=== PATIENT | male | born 1990 | race African-American/Black ===

== ENCOUNTER 2019-08-23 07:43 | Inpatient (IN) ==
[2019-08-23] MEDS ORDERED: HYDROmorphone 2 MG/1 ML VIAL IV STA (07:52)
[2019-08-23] MEDS ORDERED: LACTATED RINGERS 1,000 ML IV STA (07:52)
[2019-08-23] MEDS ORDERED: PROPOFOL 200 MG/20 ML VIAL IV ONE (08:23)
[2019-08-23 08:53] LABS: Basophils % 0.2 % (0.0-0.8); Hematocrit 35.9 VOL% (42.0-52.0); Hemoglobin 11.7 GM/DL (14.0-18.0); Immature Granulocytes % 0.8 %; Immature Granulocytes Absolute 0.15 #; Lymphocytes # 1.6 10*3/uL (1.4-4.0); Mean Corpuscular HGB Conc 32.6 GM/DL (32-36); Mean Corpuscular Volume 94.2 FL (87-102); Mean Platelet Volume 10.1 FL (9.6-12.0); Monocytes % 6.6 % (1.7-12.7); Neutrophils % 83.4 % (38.7-73.9); Platelet Count 187 T/CUMM (130-400); Red Blood Count 3.81 MC/CUMM (3.8-5.5); White Blood Count 18.3 T/CUMM (4-12)
[2019-08-23 09:04] LABS: Partial Thromboplastin Time 22.2 SECS (20.8-36.0)
[2019-08-23 09:13] LABS: Alanine Aminotransferase 80 U/L (16-61); Albumin 3.5 G/DL (3.4-5.0); Alkaline Phosphatase 52 U/L (45-117); Aspartate Amino Transferase 136 U/L (0-37); Bilirubin,Total < 0.39 MG/DL (0.2-1.0); Blood Urea Nitrogen 11 MG/DL (7-18); Calcium 7.8 MG/DL (8.5-10.1); Estimated Glom Filtration Rate 112 ML/MIN; Glucose 76 MG/DL (74-106); Osmolality,Calculated 278.3 MOS/KG (273-304); Total Protein 6.7 G/DL (6.4-8.3)
[2019-08-23] MEDS ORDERED: LIDOCAINE 1%/EPI INJ 20 ML VIAL ONE (09:33)
[2019-08-23 09:52] LABS: Apearance,Urine Slightly Hazy (Clear); Bilirubin,Urine Negative (Negative); Blood, Urine Large mg/dL (Negative); Glucose,Urine (UA) Negative (Negative); Hyaline Casts,Urine 3 /LPF (0-3); Ketones,Urine Negative (Negative); Mucus,Urine Occasional /LPF (Occasional); Nitrite,Urine Negative (Negative); Protein,Urine 30 MG/DL; RBC,Urine 5 /HPF (0-4); Squamous Epithelial Cell,Urine Occasional /HPF (0-10); Urine Color Yellow (Yellow); Urine Specific Gravity 1.021 (1.001-1.035); Urine Urobilinogen < 2.0 EU/DL (0.2-1.0); WBC,Urine 3 /HPF (0-6)
[2019-08-23 10:05] LABS: Barbiturates Screen,Urine Negative (Negative); Benzodiazepines Screen,Urine Negative (Negative); Cannabinoid Screen,Urine Positive (Negative); Opiate Screen,Urine Negative (Negative); Phencyclidine Screen,Urine Negative (Negative)
[2019-08-23] MEDS ORDERED: PROMETHAZINE 25 MG/1 ML VIAL IM PRN (11:10)
[2019-08-23] MEDS ORDERED: KETOROLAC 15 MG/1 ML VIAL IM SCH (11:30)
[2019-08-23] MEDS: ONDANSETRON 4 MG/2 ML VIAL IV PRN ×2 (11:45→20:55)
[2019-08-23] MEDS: LACTATED RINGERS 1,000 ML IV SCH ×2 (13:54→19:20)
[2019-08-23] MEDS: KETOROLAC 15 MG/1 ML VIAL IV SCH ×2 (14:54→20:54)
[2019-08-23] MEDS: HYDROmorphone 2 MG/1 ML VIAL IV PRN (17:48)
[2019-08-24] MEDS: HYDROmorphone 2 MG/1 ML VIAL IV PRN ×2 (01:37→17:51)
[2019-08-24] MEDS: ENOXAPARIN 40 MG/0.4 ML SYRINGE SUBCUT SCH (03:33)
[2019-08-24] MEDS: KETOROLAC 15 MG/1 ML VIAL IV SCH ×4 (03:33→21:21)
[2019-08-24] MEDS: LACTATED RINGERS 1,000 ML IV SCH (03:33)
[2019-08-24 05:57] LABS: Basophils % 0.3 % (0.0-0.8); Eosinophils # 0.1 10*3/uL (0.0-0.87); Eosinophils % 0.7 % (0.00-10.9); Hematocrit 30.9 VOL% (42.0-52.0); Hemoglobin 10.1 GM/DL (14.0-18.0); Immature Granulocytes % 0.4 %; Immature Granulocytes Absolute 0.03 #; Lymphocytes # 2.5 10*3/uL (1.4-4.0); Lymphocytes % 34.9 % (21.2-54.2); Mean Corpuscular HGB Conc 32.7 GM/DL (32-36); Mean Corpuscular Volume 94.2 FL (87-102); Monocytes % 5.4 % (1.7-12.7); Neutrophils % 58.3 % (38.7-73.9); Platelet Count 156 T/CUMM (130-400); Red Blood Count 3.28 MC/CUMM (3.8-5.5); Red Cell Distribution Width 12.8 % (9.3-17.3); White Blood Count 7.2 T/CUMM (4-12)
[2019-08-24 06:15] LABS: Calcium 8.7 MG/DL (8.5-10.1); Osmolality,Calculated 279.3 MOS/KG (273-304)
[2019-08-24] MEDS: ZALEPLON 5 MG CAPSULE PO SCH (21:21)
[2019-08-25] MEDS: HYDROmorphone 2 MG/1 ML VIAL IV PRN ×2 (03:01→10:05)
[2019-08-25] MEDS: KETOROLAC 15 MG/1 ML VIAL IV SCH ×4 (03:01→21:14)
[2019-08-25] MEDS: ENOXAPARIN 40 MG/0.4 ML SYRINGE SUBCUT SCH (03:02)
[2019-08-25] MEDS: ZALEPLON 5 MG CAPSULE PO SCH (21:14)
[2019-08-26] MEDS: KETOROLAC 15 MG/1 ML VIAL IV SCH ×2 (02:11→09:41)
[2019-08-26] MEDS: ENOXAPARIN 40 MG/0.4 ML SYRINGE SUBCUT SCH (04:25)
[2019-08-26] MEDS: HYDROmorphone 2 MG/1 ML VIAL IV PRN ×2 (09:36→21:40)
[2019-08-26] MEDS: ZALEPLON 5 MG CAPSULE PO SCH (21:40)
[2019-08-27] MEDS: ENOXAPARIN 40 MG/0.4 ML SYRINGE SUBCUT SCH (04:39)
[2019-08-27 08:25] VITALS: BP 121/68
== END 2019-08-27 12:05 | disposition home or self-care (01) | DRG 200 ==
LOC: N.ED 07:43 → N.EDINP 09:49 → N.3E 11:08
PROVIDERS: ADMIT Surgery; ATTEND Surgery